=== PATIENT | male | born 1990 | race American Indian/Alaskan Native ===

== ENCOUNTER 2016-11-01 14:18 | Emergency (ER) | payer OTHER ==
[2016-11-01] MEDS ORDERED: EMLA TP ONE (17:58)
--- NOTE | 2016-11-01 18:03 | Emergency Department Report ---
ED General Adult HPI - General Chief complaint: Eye Problems Stated complaint: CYST OVER RT EYE Time Seen by Provider: 11/01/16 17:55 Source: patient Mode of arrival: Ambulatory Limitations: No Limitations - History of Present Illness Initial comments: 26-year-old male comes in for a cystlike structure above his right eyes. He reports he has been on antibiotics Keflex twice a day 7 days starting on Wednesday. He reports the swelling has increased and he is still taking the antibiotic denies any change of vision nausea vomiting no fever no chills. Does admit that he has gotten abscesses on other parts of his body as well. - Related Data Allergies Allergy/AdvReac Type Severity Reaction Status Date / Time No Known Allergies Allergy Unverified 11/01/16 14:35 ED Review of Systems ROS: Stated complaint: CYST OVER RT EYE Other details as noted in HPI Constitutional: no symptoms reported Eyes: as per HPI Skin: as per HPI ED Past Medical Hx - Past Medical History Previous Medical History?: No - Surgical History Past Surgical History?: No - Social History Smoking Status: Never Smoker Substance Use Type: None ED Physical Exam - General Limitations: No Limitations General appearance: alert, in no apparent distress - Head Head exam: Present: atraumatic, normocephalic - Eye Eye exam: Present: PERRL, EOMI, other (fluctuant lesion of the right eyebrow. Mildly tender to palpate) - ENT ENT exam: Present: normal exam - Neck Neck exam: Present: normal inspection ED Course Vital Signs 11/01/16 14:32 Temperature 97.1 F L Pulse Rate 71 Respiratory 18 Rate Blood Pressure 138/92 O2 Sat by Pulse 100 Oximetry - I & D Right Elbow Blade Size: 11 I & D Procedure: betadine prep, sterile drapes applied, sterile dressing applied , no gauze wick placed Progress: Patient tolerated procedure well. ED Medical Decision Making - Medical Decision Making Is been evaluated by this provider in fast track. We will order an emla topical to apply to the eyebrow area. Will use a 19-gauge or 20 days to protect the skin and express the contents of the abscess. Discussed the patient that he needs to continue taking the antibiotics as prescribed change the bandage at least once a day. He can follow up with us in 48-72 hours for recheck. Patient verbalized understanding Critical care attestation.: If time is entered above; I have spent that time in minutes in the direct care of this critically ill patient, excluding procedure time. ED Disposition Clinical Impression: Abscess Disposition: DISCHARGED TO HOME OR SELFCARE Is pt being admited?: No Does the pt Need Aspirin: No Condition: Stable Instructions: Abscess Incision and Drainage (ED) Additional Instructions: Complete the antibiotics. Follow-up in 24-48 hours. Referrals: PRIMARY CAREMD [Primary Care Provider] - 3-5 Days RIP LIRA MD [Staff Physician] - 3-5 Days Forms: Work/School Release Form(ED)
[2016-11-01 19:39] VITALS: BP 130/88
== END 2016-11-01 19:47 | disposition home or self-care (01) ==
LOC: EDSEX → ED 14:18
DX: L02.01 Cutaneous abscess of face (principal)
CPT/HCPCS: 99282